=== PATIENT | male | born 1980 | race Caucasian/White ===

== ENCOUNTER 2017-11-15 22:06 | Emergency (ER) | payer BC ==
[~2017-11-15] VITALS: Ht 180.3 cm; Wt 222.4 kg
[~2017-11-15 22:06] MED LIST: FLEXERIL10 MG PO; NAPROSYN500 MG PO
[2017-11-15] MEDS ORDERED: PERCOCET 5/31 TABLET PO (23:42)
[2017-11-15] MEDS ORDERED: FLEXERIL10 MG PO (23:42)
[2017-11-15] MEDS ORDERED: NAPROSYN500 MG PO (23:42)
[2017-11-16 00:14] VITALS: BP 140/77
== END 2017-11-16 00:15 | disposition home or self-care (01) ==
LOC: EME 22:06
DX: M54.31 Sciatica, right side (principal); M79.604 Pain in right leg; I10 Essential (primary) hypertension
CPT/HCPCS: 93971; 99281; 99283

== ENCOUNTER 2017-12-11 02:58 | Emergency (ER) | payer OTHER, BC ==
[~2017-12-11] VITALS: Ht 180.3 cm; Wt 221.3 kg
[~2017-12-11 02:58] MED LIST changes: +PERCOCET 5/31 TABLET PO
[2017-12-11 03:45] LABS: BASOPHIL (%) 0.4 % (0-1); EOSINOPHIL (%) 0.4 % (0-5); HEMATOCRIT 39.9 % (38.0-50.0); HEMOGLOBIN 13.1 G/DL (12.5-16.6); IMMATURE GRANULOCYTE (%) 0.3 % (0.0-0.7); LYMPHOCYTE (%) 11.4 % (15-42); LYMPHOCYTE COUNT 1.2 K/uL (1.0-2.8); MCH 27.3 PG (29.0-34.0); MCHC 32.8 G/DL (30.0-36.0); MCV 83.1 FL (86-99); MONOCYTE (%) 4.6 % (3-12); MONOCYTE COUNT 0.5 K/uL (0-0.8); NEUTROPHIL (%) 82.9 % (45-76); NEUTROPHIL COUNT 8.8 K/uL (1.8-6.4); PLATELET COUNT 161 K/uL (156-360); RBC DIS.WIDTH-CV 14.3 % (11.8-14.6); RBC DIS.WIDTH-SD 42.9 % (39-53); WHITE BLOOD COUNT 10.6 K/uL (4.1-10.2)
[2017-12-11 03:56] LABS: ALBUMIN 4.1 g/dL (3.2-4.8); CHLORIDE 102 mEq/L (99-109); POTASSIUM 3.9 mEq/L (3.7-5.4); SODIUM 137 mEq/L (136-147)
[2017-12-11 03:59] LABS: GLUCOSE 117 mg/dL (70-99); TOTAL PROTEIN 7.1 g/dL (6.4-8.3)
[2017-12-11 04:01] LABS: TOTAL BILIRUBIN 0.5 mg/dL (0.0-1.0)
[2017-12-11 04:02] LABS: ALKALINE PHOSPHATASE 98 IU/L (3-129); SERUM ETHYL ALCOHOL < 10 mg/dL
[2017-12-11 04:03] LABS: GFR ESTIMATE (CALCULATED) > 59 mL/min/ (58.99-99999)
[2017-12-11 04:04] LABS: AST (GOT) 21 IU/L (2-34); UREA NITROGEN (BUN) 12 mg/dL (9-23)
[2017-12-11 04:05] LABS: ALT (GPT) 24 IU/L (3-49)
[2017-12-11 05:50] LABS: APPEARANCE CLEAR ((CLEAR)); BILIRUBIN NEGATIVE; BLOOD NEGATIVE; COLOR YELLOW ((YELLOW)); GLUCOSE (STRIP) NEGATIVE; KETONES NEGATIVE; LEUKOCYTES MODERATE; NITRITE NEGATIVE; PROTEIN (STRIP) 100; SPECIFIC GRAVITY 1.028 (1.000-1.030)
[2017-12-11 05:54] LABS: BACTERIA NONE SEEN /HPF; EPITHELIAL CELLS 1+ /HPF; HYALINE CASTS 0-5 /LPF; MUCUS TRACE /LPF; UCUL ADDED? YES; WHITE BLOOD CELLS 20-30 /HPF (0-5)
[2017-12-11] MEDS ORDERED: TRAMADOL HCL50 MG PO (05:54)
[2017-12-11] MEDS ORDERED: ZOFRAN4 MG PO (05:54)
[2017-12-11 06:03] VITALS: BP 125/75
== END 2017-12-11 06:04 | disposition home or self-care (01) ==
LOC: EME 02:58
PROVIDERS: Emergency Medicine
DX: S40.011A Contusion of right shoulder, initial encounter (principal); S09.90XA Unspecified injury of head, initial encounter; M54.9 Dorsalgia, unspecified; M54.2 Cervicalgia; M79.602 Pain in left arm; V64.5XXA Driver of heavy transport vehicle injured in collision with heavy transport vehicle or bus in traffic accident, initial encounter; Y92.410 Unspecified street and highway as the place of occurrence of the external cause; I10 Essential (primary) hypertension
CPT/HCPCS: 71046; 72040; 72070; 72100; 72170; 73030; 73610; 80053; 81003; 85025; 87086; G0480; J2405; J3010; J7030